=== PATIENT | female | born 1940 | race Caucasian/White ===

== ENCOUNTER → 2016-05-11 | Outpatient (CLI) | payer OTHER ==
[~2016-05-11] MED LIST: ACET-1311 PO; ALEN70TA2 PO; ASPI81TA28 PO; CETI10TA10 PO; CITA20TA9 PO; CLB/200 PO; DONE1TAB25 PO; FERR28TA PO; GLIP-171 PO; LEVO1TAB PO; METF-384 PO; NMN10 PO; OMEGCAP2 PO; PIOG1TAB25 PO; SIMV80TA2 PO
[2016-05-11 10:22] LABS: ESTIMATED AVERAGE GLUCOSE 169 mg/dl; HA1C FLAG Normal (Normal)
[2016-05-11 10:27] LABS: THYROID STIMULATING HORMONE 5.54 uIu/ml (0.300-4.500)
--- NOTE | 2016-05-12 11:32 | CODING QUERY NO DIAGNOSIS ---
TREATMENT RENDERED WITHOUT A DIAGNOSIS To promote full compliance with coding requirements relating to patient care, physician participation is requested in all cases of plate preparer uncertainty. Please assist us with providing a diagnosis/symptom for the test(s) below: A diagnosis/symptom was not documented on your Order. A valid diagnosis/symptom is required to bill all insurances. Please remember that we are unable to code a diagnosis of rule out, probable, possible, questionable, or suspected. Tests that require a diagnosis: DOS: 05/11/16 * HEMOGLOBIN A1C DIAGNOSIS: * TSH DIAGNOSIS: * T4 FREE DIAGNOSIS: Provider Signature: Date: Thank you Brittany Lehman [facility] Information Management Once completed, please kindly fax back to [phone] For questions please call [phone]
== END ==
LOC: C.LABOUTLO 09:06
PROVIDERS: ATTEND Family Medicine
DX: E11.9 Type 2 diabetes mellitus without complications (principal); E03.9 Hypothyroidism, unspecified

== ENCOUNTER → 2016-10-02 | Outpatient (CLI) | payer OTHER ==
[2016-10-02 09:22] LABS: BASO % 0.2 %; BASO ABS # 0.01 K/uL (0-0.2); COMPLETE YES; EOS % 2.6 %; HEMATOCRIT 37.1 % (37-47); IG% 0.2 %; LYMPH % 34.7 %; LYMPH ABS # 1.76 K/uL (1.2-3.4); MEAN CELL VOLUME 95.1 fL (80-100); MEAN CORPUSCULAR HEMOGLOBIN 31.8 pg (25-34); MEAN CORPUSCULAR HGB CONC 33.4 g/dl (32-36); MEAN PLATELET VOLUME 10.8 fL (7.4-10.4); MONO % 11.6 %; NEUT % 50.7 %; PLATELET COUNT 190 K/uL (130-400); WHITE BLOOD COUNT 5.07 K/uL (4.8-10.8)
[2016-10-02 11:09] LABS: URINE APPEARANCE CLOUDY (CLEAR); URINE BILIRUBIN NEG (NEG); URINE COLOR YELLOW; URINE NITRITE NEG (NEG); URINE SPECIFIC GRAVITY 1.023 (1.000-1.030); UROBILINOGEN NEG (NEG)
[2016-10-02 11:14] LABS: MANUAL MICROSCOPIC REQUIRED? NO; REVIEW REQ? NO
== END | disposition home or self-care (01) ==
LOC: C.LABOUTLO 08:44
PROVIDERS: ATTEND Family Medicine
DX: R41.0 Disorientation, unspecified (principal)

== ENCOUNTER → 2016-11-11 | Outpatient (CLI) | payer OTHER ==
[2016-11-11 11:04] LABS: ESTIMATED AVERAGE GLUCOSE 163 mg/dl; HA1C FLAG Normal (Normal)
== END | disposition home or self-care (01) ==
LOC: C.LABOUTLO 09:28
PROVIDERS: ATTEND Family Medicine
DX: Z01.89 Encounter for other specified special examinations (principal)

== ENCOUNTER → 2016-11-13 | Outpatient (CLI) | payer OTHER ==
[2016-11-13 16:03] LABS: URINE APPEARANCE CLOUDY (CLEAR); URINE BILIRUBIN NEG (NEG); URINE COLOR YELLOW; URINE NITRITE POS (NEG); URINE SPECIFIC GRAVITY 1.023 (1.000-1.030); UROBILINOGEN NEG (NEG); ZZUR CULT IF INDIC CLEAN CATCH YES
[2016-11-13 16:05] LABS: MANUAL MICROSCOPIC REQUIRED? NO; REVIEW REQ? NO
--- NOTE | 2016-12-18 09:17 | CODING QUERY NO DIAGNOSIS ---
TREATMENT RENDERED WITHOUT A DIAGNOSIS To promote full compliance with coding requirements relating to patient care, physician participation is requested in all cases of pipeline controller uncertainty. Please assist us with providing a diagnosis/symptom for the test(s) below: A diagnosis/symptom was not documented on your Order. A valid diagnosis/symptom is required to bill all insurances. Please remember that we are unable to code a diagnosis of rule out, probable, possible, questionable, or suspected. Tests that require a diagnosis: * URINE CULTURE CLEAN CATCH DIAGNOSIS: * UA CLEAN CATCH CULT DIAGNOSIS: Provider Signature: Date: Thank you Yovana Noble [employer] Information Management Once completed, please kindly fax back to [phone] For questions please call [phone]
== END | disposition home or self-care (01) ==
LOC: C.LABOUTLO 15:15
PROVIDERS: ATTEND Family Medicine
DX: R30.0 Dysuria (principal)

== ENCOUNTER → 2016-12-25 | Outpatient (CLI) | payer OTHER | END | disposition home or self-care (01) | LOC: C.LABOUTLO 08:33 | PROVIDERS: ATTEND Family Medicine | DX: E11.9 Type 2 diabetes mellitus without complications (principal); R94.6 Abnormal results of thyroid function studies ==

== ENCOUNTER 2017-04-07 14:55 | Emergency (ER) | payer OTHER ==
[~2017-04-07] VITALS: Ht 167.6 cm; Wt 91.1 kg
[~2017-04-07 14:55] MED LIST changes: -ALEN70TA2 PO; -CITA20TA9 PO; -CLB/200 PO; -DONE1TAB25 PO; -SIMV80TA2 PO
[2017-04-07 14:57] VITALS: O2SAT 96; Ht 167.6 cm; Wt 91.1 kg
--- NOTE | 2017-04-07 15:24 | EMERGENCY ROOM VISIT NOTE ---
History First contact with patient: 15:03 Chief Complaint: HYPERGLYCEMIA Stated Complaint: HYPERGLYCEMIA, DOCTOR REFERRED PT KIERRA. History of Present Illness The patient is a 76 year old female who presents to the Emergency Room via ambulance accompanied by power of commercial attorney with complaints of "hyperglycemia, referred by Suzanne Bravo". The patient has been residing at [facility], and has been managing her diabetes with diet control, as well as oral medication. She's been found to have fluctuating glycemic episodes and today had a diaphoretic episode just prior to arrival and they checked her blood sugar was found to be in the 400s. Because that facility does not offer intravenous or subcutaneous insulin they sent her here for evaluation. Bedside glucose currently 269. Power of commercial attorney notes that she is demented. Review of Systems A complete 10-point Review of Systems was discussed with the patient, with pertinent positives and negatives listed in the History of Present Illness. All remaining Review of Systems questions can be considered negative unless otherwise specified. Past Medical/Surgical History Medical Problems: (1) Diabetes (2) Right hip replacement Social History Smoking Status: Never Smoker Alcohol Use: none Drug Use: none Marital Status: single Housing Status: lives with family Current/Historical Medications Scheduled Alendronate Sodium (Fosamax), 70 MG PO WK Celecoxib (CeleBREX), 200 MG PO BID Cephalexin Monohydrate (Keflex), 500 MG PO BID Citalopram Hydrobromide (Celexa), 20 MG PO DAILY Donepezil Hydrochloride (Donepezil Hcl), 5 MG PO DAILY Glipizide Xl (Glucotrol Xl), 5 MG PO BID Levothyroxine Sodium (Levothyroxine Sodium), 112 MCG PO DAILY Memantine (Namenda), 10 MG PO DAILY Metformin Hcl (Glucophage), 500 MG PO BID Montelukast Sodium (Singulair), 10 MG PO DAILY Pioglitazone Hcl (Pioglitazone Hcl), 15 MG PO DAILY Simvastatin (Zocor), 80 MG PO DAILY Physical Exam Vital Signs Date Time Temp Pulse Resp B/P (MAP) Pulse Ox O2 Delivery O2 Flow Rate FiO2 04/07/17 19:05 37.2 62 20 113/68 98 Room Air 04/07/17 18:01 125/101 04/07/17 18:00 68 16 04/07/17 17:30 61 17 04/07/17 17:00 61 14 04/07/17 16:31 156/68 04/07/17 16:30 71 19 04/07/17 16:14 63 20 146/75 94 Room Air 04/07/17 16:13 63 04/07/17 14:57 96 Room Air 04/07/17 14:57 36.7 72 14 139/56 96 Room Air Physical Exam VITAL SIGNS - Vital signs and nursing notes were reviewed. Afebrile and stable vital signs. GENERAL -76-year-old female appearing her stated age who is in no acute distress. Communicates well with provider and answers questions appropriately. She does appear to be demented, but is nontoxic in appearance. SKIN - Without rashes. No particular meningeal rash. HEAD - NC/AT. EYES - PERRL with EOMI bilaterally. Sclera anicteric. No hyphema. EARS - No deformities of external structures noted on gross examination bilaterally. No pain elicited with palpation of the tragus bilaterally. External auditory canals without discharge or otorrhea. Tympanic membranes pearly benitez without retraction or bulging. No fluid or purulent material visualized behind the TM. Handle of malleus, umbo, cone of light, pars tensa/ flaccid all easily visualized. NOSE - Midline and without cyanosis. No epistaxis or purulent drainage noted. MOUTH/OROPHARYNX - Without perioral cyanosis. LUNGS - Chest wall symmetric without accessory muscle use, intercostals retractions, or central cyanosis. Normal vesicular breath sounds CTA B/L. No wheezes, rales, or rhonchi appreciated. CARDIAC - RRR with S1/S2. No murmur, rubs, or gallops appreciated. EXTREMITIES - +5/5 strength noted in UE/LE bilaterally. NEUROLOGIC - Cranial nerves II through XII grossly intact. Sensory intact to light touch throughout. PSYCH - Alert but not oriented, she does cooperate fully with examiner. Pt is very pleasant and interacts well with examiner. Medical Decision & Procedures ER Provider Diagnostic Interpretation: [~ rep ct add3]] CHEST ONE VIEW PORTABLE HISTORY: 76 years-old Female Hyperglycemia COMPARISON: Chest radiograph 12/10/2013 TECHNIQUE: Portable AP view of the chest FINDINGS: Cardiomediastinal and hilar silhouettes are within normal limits. Atherosclerosis of the aorta. Mild right hemidiaphragmatic elevation without pneumothorax, pleural effusion or focal airspace consolidation. Linear subsegmental opacities of the right lung base suggest areas of atelectasis/scarring. Severe degenerative changes with remodeling noted involving the bilateral shoulders, progressed from prior study. Degenerative changes also seen throughout the spine. IMPRESSION: No acute process. The above report was generated using voice recognition software. It may contain grammatical, syntax or spelling errors. Electronically signed by: Giovanni Krause M.D. 04/07/2017 3:26 PM Dictated Date/Time: 04/07/2017 3:25 PM Laboratory Results 04/07/17 15:53 Red Blood Count 3.89, Mean Corpuscular Volume 95.4, Mean Corpuscular Hemoglobin 32.4, Mean Corpuscular Hemoglobin Concent 34.0, Mean Platelet Volume 10.4, Neutrophils (%) (Auto) 63.6, Lymphocytes (%) (Auto) 25.9, Monocytes (%) (Auto) 8.9, Eosinophils (%) (Auto) 1.2, Basophils (%) (Auto) 0.1, Neutrophils # (Auto) 4.42, Lymphocytes # (Auto) 1.80, Monocytes # (Auto) 0.62, Eosinophils # (Auto) 0.08, Basophils # (Auto) 0.01 04/07/17 15:53 Test 04/07/17 15:35 04/07/17 15:53 04/07/17 17:59 Urine Color YELLOW Urine Appearance CLEAR (CLEAR) Urine pH 5.0 (4.5-7.5) Urine Specific [place] 1.027 (1.000-1.030) Urine Protein NEG (NEG) Urine Glucose (UA) 3+ (NEG) Urine Ketones NEG (NEG) Urine Occult Blood TRACE (NEG) Urine Nitrite NEG (NEG) Urine Bilirubin NEG (NEG) Urine Urobilinogen NEG (NEG) Urine Leukocyte Esterase MODERATE (NEG) Urine WBC (Auto) >30 /hpf (0-5) Urine RBC (Auto) 0-4 /hpf (0-4) Urine Hyaline Casts (Auto) 1-5 /lpf (0-5) Urine Epithelial Cells (Auto) 0-5 /lpf (0-5) Urine Bacteria (Auto) 4+ (NEG) White Blood Count 6.95 K/uL (4.8-10.8) Red Blood Count 3.89 M/uL (4.2-5.4) Hemoglobin 12.6 g/dL (12.0-16.0) Hematocrit 37.1 % (37-47) Mean Corpuscular Volume 95.4 fL (80-100) Mean Corpuscular Hemoglobin 32.4 pg (25-34) Mean Corpuscular Hemoglobin Concent 34.0 g/dl (32-36) Platelet Count 191 K/uL (130-400) Mean Platelet Volume 10.4 fL (7.4-10.4) Neutrophils (%) (Auto) 63.6 % Lymphocytes (%) (Auto) 25.9 % Monocytes (%) (Auto) 8.9 % Eosinophils (%) (Auto) 1.2 % Basophils (%) (Auto) 0.1 % Neutrophils # (Auto) 4.42 K/uL (1.4-6.5) Lymphocytes # (Auto) 1.80 K/uL (1.2-3.4) Monocytes # (Auto) 0.62 K/uL (0.11-0.59) Eosinophils # (Auto) 0.08 K/uL (0-0.5) Basophils # (Auto) 0.01 K/uL (0-0.2) RDW Standard Deviation 43.9 fL (36.4-46.3) RDW Coefficient of Variation 12.7 % (11.5-14.5) Immature Granulocyte % (Auto) 0.3 % Immature Granulocyte # (Auto) 0.02 K/uL (0.00-0.02) Prothrombin Time 10.6 SECONDS (9.0-12.0) Prothromb Time International Ratio 1.0 (0.9-1.1) Activated Partial Thromboplast Time 24.1 SECONDS (21.0-31.0) Partial Thromboplastin Ratio 0.9 Anion Gap 8.0 mmol/L (3-11) Est Creatinine Clear Calc Drug Dose 68.2 ml/min Estimated GFR () 82.3 Estimated GFR (Non- 71.0 BUN/Creatinine Ratio 18.9 (10-20) Calcium Level 8.6 mg/dl (8.5-10.1) Magnesium Level 1.5 mg/dl (1.8-2.4) Total Bilirubin 0.3 mg/dl (0.2-1) Aspartate Amino Transf (AST/SGOT) 14 U/L (15-37) Alanine Aminotransferase (ALT/SGPT) 24 U/L (12-78) Alkaline Phosphatase 55 U/L (45-117) Troponin I < 0.015 ng/ml (0-0.045) Total Protein 6.8 gm/dl (6.4-8.2) Albumin 3.4 gm/dl (3.4-5.0) Globulin 3.4 gm/dl (2.5-4.0) Albumin/Globulin Ratio 1.0 (0.9-2) Thyroid Stimulating Hormone (TSH) 7.060 uIu/ml (0.300-4.500) Bedside Glucose 174 mg/dl (70-90) Medications Administered Medications (Trade) Dose Ordered Sig/Francisco Route Start Time Stop Time Status Last Admin Dose Admin Sodium Chloride 500 ml @ 999 mls/hr Q31M STAT IV 04/07/17 15:39 04/07/17 16:09 DC 04/07/17 16:14 999 MLS/HR Ceftriaxone Sodium (Rocephin Inj) 1 gm NOW STAT IV 04/07/17 18:10 04/07/17 18:11 DC 04/07/17 18:35 1 GM Cephalexin Monohydrate (Keflex 500MG Home Pack) 1 homepack NOW STAT PO 04/07/17 18:10 04/07/17 18:11 DC 04/07/17 18:34 1 HOMEPACK Medical Decision Patient was seen and evaluated as above. After obtaining a thorough history and physical examination and was apparent that she was sent here over concern for higher blood sugars and the cause. She was sent from [facility]. Clinically she has dementia, but is otherwise well in appearance. IV access was initiated , the above workup was performed. EKG reveals normal sinus rhythm. CBC reveals no concern leukocytosis. Her blood cell count at 3.9. Coags normal. Metabolic panel reveals POC glucose at 269, and was repeated after fluids without any 174. Magnesium low at 1.5. TSH high at 7.060. Troponin negative. Urinalysis reveals moderate leukocytes, and greater than 30 white blood cells. No epithelial cells. 4+ urine bacteria. I will favor this to be mostly a UTI. She was given 1 g Rocephin here and will be discharged home on Keflex. Previous review was had a for sensitivities and they were found to be nearly pansensitive other than Macrobid. I believe Keflex is appropriate. She' ll be given 500 mg twice a day. She may start this tomorrow. She was given some from here in the event that [facility] is not able to get the prescription tomorrow. Case was discussed with the attending physician. I also utilized to help her case hardener to identify best case and treatment for the patient. It appears that she is stable to go back to [facility] for monitoring of her shoulders during the UTI., And for decompensation. If she changes in any way she is certainly invited to come back. They were educated upon management, educated upon worrisome symptoms in which to return, had questions answered prior to discharge, and were discharged home in good condition. In evaluation treatment this patient following differential diagnoses entertained: PR, sepsis, UTI, pyelonephritis, infected kidney stone, among others. Impression Primary Impression: UTI (urinary tract infection) Additional Impression: Hyperglycemia Departure Information Dispostion Home / Self-Care Condition GOOD Prescriptions Cephalexin Monohydrate (Keflex) 500 Mg Cap 500 MG PO BID for 10 Days, #20 CAP Prov: Carlos Mendoza PA-C 04/07/17 Referrals [facility] (PCP) Patient Instructions My [facility] Additional Instructions You were seen in the emergency Department for high blood sugar and a urinary tract infection. I suspect that you're elevated sugar is probably from your UTI. You point care sugar was found to be 269 here. Addendum dropped to 17. Your magnesium is low at 1.5. TSH is at 7.060. You given 1 g of Rocephin here. This will cover your for 24 hours. You may then begin the Keflex tomorrow afternoon/evening. In the event that you cannot your prescription filled in a short time, I have given you a 2 day supply from the emergency department here. The Keflex will be every 12 hours. I do recommend checking the sugars twice a day during the UTI and thereafter to ensure resolution of the hyperglycemia. Please return with any new/concerning symptoms. Thank you for your time. Please do not hesitate to call back with any questions or concerns. Problem Qualifiers
--- NOTE | 2017-04-07 15:27 | DIAGNOSTIC IMAGING REPORT ---
CHEST ONE VIEW PORTABLE HISTORY: 76 years-old Female Hyperglycemia COMPARISON: Chest radiograph 12/10/2013 TECHNIQUE: Portable AP view of the chest FINDINGS: Cardiomediastinal and hilar silhouettes are within normal limits. Atherosclerosis of the aorta. Mild right hemidiaphragmatic elevation without pneumothorax, pleural effusion or focal airspace consolidation. Linear subsegmental opacities of the right lung base suggest areas of atelectasis/scarring. Severe degenerative changes with remodeling noted involving the bilateral shoulders, progressed from prior study. Degenerative changes also seen throughout the spine. IMPRESSION: No acute process. The above report was generated using voice recognition software. It may contain grammatical, syntax or spelling errors. Electronically signed by: Giovanni Krause M.D. 04/07/2017 3:26 PM Dictated Date/Time: 04/07/2017 3:25 PM
[2017-04-07] MEDS ORDERED: SODIUM CHLORIDE 0.9% 500ML 500 ML IV STA (15:39)
--- NOTE | 2017-04-07 16:02 | EMERGENCY ROOM VISIT NOTE ---
ED Visit Note First contact with patient: 15:03 I have seen and examined this patient with Carlos Mendoza and generally agree with the treatment plan as discussed. Problem List Medical Problems: (1) Diabetes Status: Chronic (2) Right hip replacement Status: Resolved Current/Historical Medications Scheduled Alendronate Sodium (Fosamax), 70 MG PO WK Aspirin (Aspirin Ec), 81 MG PO DAILY Celecoxib (CeleBREX), 200 MG PO BID Cetirizine Hcl (Zyrtec), 10 MG PO BID Citalopram Hydrobromide (Celexa), 20 MG PO DAILY Donepezil Hydrochloride (Donepezil Hcl), 5 MG PO DAILY Ferrous Gluconate (Ferrous Gluconate Iron), 1 TAB PO DAILY Glipizide Xl (Glucotrol Xl), 5 MG PO BID Levothyroxine Sodium (Synthroid), 0.5 TAB PO DAILY Memantine (Namenda), 10 MG PO BIDM Metformin Hcl (Glucophage), 1,000 MG PO BID [place]-3 Fatty Acids (Fish Oil), 1 CAP PO DAILY Pioglitazone Hcl (Pioglitazone Hcl), 15 MG PO DAILY Simvastatin (Zocor), 80 MG PO DAILY Scheduled PRN Acetaminophen (Tylenol), 650 MG PO Q4 PRN for Pain or Fever Allergies Coded Allergies: Naproxen (Verified Allergy, Unknown, ., 10/29/15) Orphenadrine (Verified Allergy, Unknown, UNKNOWN, 10/29/15) POLLEN (Verified Allergy, Unknown, UNKNOWN, 12/10/13) Sodium Metabisulfite (Verified Allergy, Unknown, UNKNOWN, 12/10/13) Warfarin (Verified Allergy, Unknown, UNKNOWN, 10/29/15) Vital Signs Date Time Temp Pulse Resp B/P (MAP) Pulse Ox O2 Delivery O2 Flow Rate FiO2 04/07/17 14:57 96 Room Air 04/07/17 14:57 36.7 72 14 139/56 96 Room Air Laboratory Results Test 04/07/17 15:04 04/07/17 15:35 04/07/17 15:44 04/07/17 15:53 Bedside Glucose 269 mg/dl (70-90) Urine WBC (Auto) >30 /hpf (0-5) Urine RBC (Auto) 0-4 /hpf (0-4) Urine Hyaline Casts (Auto) 1-5 /lpf (0-5) Urine Epithelial Cells (Auto) 0-5 /lpf (0-5) Urine Bacteria (Auto) 4+ (NEG) Departure Information Referrals Caleb Ridley III, M.D. (PCP) Patient Instructions My [facility]
[2017-04-07 16:47] LABS: BASO % 0.1 %; BASO ABS # 0.01 K/uL (0-0.2); EOS % 1.2 %; EOS ABS # 0.08 K/uL (0-0.5); HEMATOCRIT 37.1 % (37-47); HEMOGLOBIN 12.6 g/dL (12.0-16.0); IG# 0.02 K/uL (0.00-0.02); LYMPH % 25.9 %; MEAN CELL VOLUME 95.4 fL (80-100); MEAN CORPUSCULAR HEMOGLOBIN 32.4 pg (25-34); MEAN PLATELET VOLUME 10.4 fL (7.4-10.4); MONO % 8.9 %; MONO ABS # 0.62 K/uL (0.11-0.59); NEUT % 63.6 %; NEUT ABS # 4.42 K/uL (1.4-6.5); PLATELET COUNT 191 K/uL (130-400); RED CELL DISTRIBUTION WIDTH CV 12.7 % (11.5-14.5); RED CELL DISTRIBUTION WIDTH SD 43.9 fL (36.4-46.3); WHITE BLOOD COUNT 6.95 K/uL (4.8-10.8)
[2017-04-07] MEDS ORDERED: LEVO112T4 PO (16:49)
[2017-04-07] MEDS ORDERED: GLC/500 PO (16:52)
[2017-04-07 16:53] LABS: PTT PATIENT 24.1 SECONDS (21.0-31.0)
[2017-04-07 17:05] LABS: ALBUMIN 3.4 gm/dl (3.4-5.0); ALT/SGPT 24 U/L (12-78); AST/SGOT 14 U/L (15-37); BLOOD UREA NITROGEN 15 mg/dl (7-18); CALCIUM 8.6 mg/dl (8.5-10.1); CARBON DIOXIDE 25 mmol/L (21-32); CREATININE 0.81 mg/dl (0.60-1.20); GLUCOSE 217 mg/dl (70-99); POTASSIUM 4.2 mmol/L (3.5-5.1); SODIUM 137 mmol/L (136-145)
[2017-04-07 17:16] LABS: ALKALINE PHOSPHATASE 55 U/L (45-117); TOTAL PROTEIN 6.8 gm/dl (6.4-8.2)
[2017-04-07] MEDS ORDERED: CEPHALEXIN 500MG HOME PACK 1 EA BTL PO STA (18:10)
[2017-04-07] MEDS ORDERED: CEFTRIAXONE SOD INJ 1 GM ADDVIAL IV STA (18:10)
[2017-04-07] MEDS ORDERED: CEPH500C PO (18:13)
[2017-04-07 19:05] VITALS: BP 113/68; PULSE 62; TEMP 37.2; O2SAT 98
--- NOTE | 2017-04-09 13:52 | Pharmacy Progress Note ---
ED Pharmacist Culture FollowUp Date of Service: Apr 09, 2017. Patient was sent home with a prescription for cephalexin 500 mg bid x 10 days, which should cover the Klebsiella pneumoniae growing from the patient's urine culture.
[2017-05-16] MEDS ORDERED: ALEN70TA2 PO (11:17)
[2017-05-16] MEDS ORDERED: MONT1TAB3 PO (16:52)
[2017-09-09] MEDS ORDERED: OXYC-90 PO (16:36)
[2017-09-11] MEDS ORDERED: NVLG SC (20:52)
[2017-09-11] MEDS ORDERED: INSU100I23 SC ×2 (20:52)
[2017-09-11] MEDS ORDERED: MAGN400T6 PO (20:52)
[2017-09-11] MEDS ORDERED: FAMOCHW27 PO (20:52)
[2017-09-11] MEDS ORDERED: LEVO1INJ13 PO (20:52)
[2017-09-11] MEDS ORDERED: OXYC-90 PO (20:52)
[2017-09-11] MEDS ORDERED: ONDA4TAB46 PO (20:52)
[2017-09-17] MEDS ORDERED: NRV5 PO (13:31)
[2017-09-17] MEDS ORDERED: LDDP5 TD (13:31)
[2017-09-17] MEDS ORDERED: ULT50X PO (13:31)
== END 2017-04-07 19:13 | disposition home or self-care (01) ==
LOC: EDBD 14:55 → C.EDC 14:56
DX: N39.0 Urinary tract infection, site not specified (principal); E11.65 Type 2 diabetes mellitus with hyperglycemia; F03.90 Unspecified dementia, unspecified severity, without behavioral disturbance, psychotic disturbance, mood disturbance, and anxiety; Z96.641 Presence of right artificial hip joint; Z79.84 Long term (current) use of oral hypoglycemic drugs

== ENCOUNTER 2017-04-14 18:10 | Emergency (ER) | payer OTHER ==
[~2017-04-14] VITALS: Ht 167.6 cm; Wt 91.0 kg
[~2017-04-14 18:10] MED LIST changes: -ACET-1311 PO; +ALEN70TA2 PO; -ASPI81TA28 PO; +CEPH500C PO; -CETI10TA10 PO; +CITA20TA9 PO; +CLB/200 PO; +DONE1TAB25 PO; -FERR28TA PO; +GLC/500 PO; +LEVO112T4 PO; -LEVO1TAB PO; -METF-384 PO; +MONT1TAB3 PO; -OMEGCAP2 PO; +SIMV80TA2 PO
[2017-04-14 18:17] VITALS: TEMP 36.7; Ht 167.6 cm; Wt 91.0 kg
[2017-04-14] MEDS ORDERED: SODIUM CHLORIDE 0.9% 1000ML 1,000 ML IV STA (18:32)
--- NOTE | 2017-04-14 18:40 | EMERGENCY ROOM VISIT NOTE ---
History Report prepared by Brenda: Leyla Rudd Under the Supervision of: Dr. Amanuel Ortega M.D. First contact with patient: 18:17 Chief Complaint: HYPERGLYCEMIA Stated Complaint: HYPERGLYCEMIA History of Present Illness The patient is a 76 year old female who presents to the Emergency Room with complaints of an episode of hyperglycemia occurring this afternoon. The patient was in the ED six days ago and was treated for a UTI. The patient did not follow up with her PCP after her last ED visit. Per sister, the patient's blood sugar was over 400 this afternoon. The patient lives at [facility] and they had cupcakes today. Per sister, the patient ate two cupcakes and when she tried to eat a third the staff took it away from the patient and she got angry. The patient is not on any insulin. The patient denies any pain. Source of History: patient, family Onset: today Position: other (generalized) Symptom Intensity: over 400 Quality: other (hyperglycemia) Timing: other (episode) Modifying Factors (Relieving): other (none) Review of Systems See HPI for pertinent positives and negatives. A total of ten systems were reviewed and were otherwise negative. Past Medical & Surgical Medical Problems: (1) Diabetes (2) Right hip replacement Family History Patient reports no known family medical history. Social History Smoking Status: Never Smoker Alcohol Use: none Drug Use: none Marital Status: single Housing Status: lives with family Current/Historical Medications Scheduled Alendronate Sodium (Fosamax), 70 MG PO WK Celecoxib (CeleBREX), 200 MG PO BID Cephalexin Monohydrate (Keflex), 500 MG PO BID Citalopram Hydrobromide (Celexa), 20 MG PO DAILY Donepezil Hydrochloride (Donepezil Hcl), 5 MG PO DAILY Glipizide Xl (Glucotrol Xl), 5 MG PO BID Levothyroxine Sodium (Levothyroxine Sodium), 112 MCG PO DAILY Memantine Hcl (Namenda Xr), 28 MG PO DAILY Metformin Hcl (Glucophage), 1,000 MG PO BID Montelukast Sodium (Singulair), 10 MG PO DAILY Ocuvite Preservision (Ocuvite Preservision), 1 TAB PO DAILY Pioglitazone Hcl (Pioglitazone Hcl), 15 MG PO DAILY Simvastatin (Zocor), 80 MG PO DAILY Allergies Coded Allergies: Naproxen (Verified Allergy, Unknown, ., 04/14/17) Orphenadrine (Verified Allergy, Unknown, UNKNOWN, 04/14/17) POLLEN (Verified Allergy, Unknown, UNKNOWN, 04/14/17) Sodium Metabisulfite (Verified Allergy, Unknown, UNKNOWN, 04/14/17) Warfarin (Verified Allergy, Unknown, UNKNOWN, 04/14/17) Physical Exam Vital Signs Date Time Temp Pulse Resp B/P (MAP) Pulse Ox O2 Delivery O2 Flow Rate FiO2 04/14/17 21:15 59 20 134/85 98 04/14/17 19:39 63 16 152/69 97 Room Air 04/14/17 18:17 36.7 66 16 167/72 99 Room Air Physical Exam GENERAL: Awake, alert, pleasantly demented, well-appearing, in no distress HENT: Normocephalic, atraumatic. Oropharynx unremarkable. Dry MM. EYES: Normal conjunctiva. Sclera non-icteric. NECK: Supple. No nuchal rigidity. FROM. No JVD. RESPIRATORY: Clear to auscultation. CARDIAC: Regular rate, normal rhythm. Extremities warm and well perfused. Pulses equal. ABDOMEN: Soft, non-distended. No tenderness to palpation. No rebound or guarding. No masses. RECTAL: Deferred. MUSCULOSKELETAL: Chest examination reveals no tenderness. The back is symmetrical on inspection without obvious abnormality. There is no CVA tenderness to palpation. No joint edema. LOWER EXTREMITIES: Calves are equal size bilaterally and non-tender. No edema. No discoloration. NEURO: Normal sensorium. No sensory or motor deficits noted. SKIN: No rash or jaundice noted. Medical Decision & Procedures Laboratory Results 04/14/17 19:20 Red Blood Count 3.86, Mean Corpuscular Volume 94.8, Mean Corpuscular Hemoglobin 32.4, Mean Corpuscular Hemoglobin Concent 34.2, Mean Platelet Volume 10.2, Neutrophils (%) (Auto) 54.4, Lymphocytes (%) (Auto) 33.5, Monocytes (%) (Auto) 10.1, Eosinophils (%) (Auto) 1.6, Basophils (%) (Auto) 0.2, Neutrophils # (Auto ) 3.14, Lymphocytes # (Auto) 1.93, Monocytes # (Auto) 0.58, Eosinophils # (Auto ) 0.09, Basophils # (Auto) 0.01 04/14/17 19:20 Test 04/14/17 18:38 04/14/17 19:20 Bedside Glucose 250 mg/dl (70-90) White Blood Count 5.76 K/uL (4.8-10.8) Red Blood Count 3.86 M/uL (4.2-5.4) Hemoglobin 12.5 g/dL (12.0-16.0) Hematocrit 36.6 % (37-47) Mean Corpuscular Volume 94.8 fL (80-100) Mean Corpuscular Hemoglobin 32.4 pg (25-34) Mean Corpuscular Hemoglobin Concent 34.2 g/dl (32-36) Platelet Count 173 K/uL (130-400) Mean Platelet Volume 10.2 fL (7.4-10.4) Neutrophils (%) (Auto) 54.4 % Lymphocytes (%) (Auto) 33.5 % Monocytes (%) (Auto) 10.1 % Eosinophils (%) (Auto) 1.6 % Basophils (%) (Auto) 0.2 % Neutrophils # (Auto) 3.14 K/uL (1.4-6.5) Lymphocytes # (Auto) 1.93 K/uL (1.2-3.4) Monocytes # (Auto) 0.58 K/uL (0.11-0.59) Eosinophils # (Auto) 0.09 K/uL (0-0.5) Basophils # (Auto) 0.01 K/uL (0-0.2) RDW Standard Deviation 43.7 fL (36.4-46.3) RDW Coefficient of Variation 12.8 % (11.5-14.5) Immature Granulocyte % (Auto) 0.2 % Immature Granulocyte # (Auto) 0.01 K/uL (0.00-0.02) Anion Gap 7.0 mmol/L (3-11) Est Creatinine Clear Calc Drug Dose 65.7 ml/min Estimated GFR () 78.8 Estimated GFR (Non- 68.0 BUN/Creatinine Ratio 16.4 (10-20) Calcium Level 8.5 mg/dl (8.5-10.1) Laboratory results reviewed by me Medications Administered Medications (Trade) Dose Ordered Sig/Francisco Route Start Time Stop Time Status Last Admin Dose Admin Sodium Chloride 1,000 ml @ 999 mls/hr Q1H1M STAT IV 04/14/17 18:32 04/14/17 19:32 DC 04/14/17 18:56 999 MLS/HR ED Course 1825: The patient was evaluated in room C3. A complete history and physical exam was performed. 2022: I reevaluated the patient. Discussed results and discharge instructions: She verbalized understanding and agreement. The patient is ready for discharge. Medical Decision I reviewed the patient's past medical history, medications, and the nursing notes as described above. Differential diagnoses: hyperglycemia, dietary indiscretion, dehydration, UTI, pneumonia, bronchitis, electrolyte abnormality. The patient is a 76-year-old woman with a past medical history of NIDDM2 resents emergency department from her assisted living after having elevated blood sugars to 400 after they fed her 3 cupcakes history of present illness. It is visit comes after the patient was seen 6 days [employer] for similar elevated blood sugar however determined be secondary to UTI which was treated with dose of ceftriaxone and prescription for Keflex. Culture from visit reveal Klebsiella pneumonia which is susceptible to both. Otherwise the patient is well-appearing, pleasantly demented in no distress, AFVSS. Fingerstick on arrival with glucose in the 200s. Labs's otherwise unremarkable. Given the patient's prior UTI was susceptible to Keflex that was given and clear etiology for the patient's glucose spike due to cupcake consumption, no indication for further workup at this time. Findings and plan for follow-up reviewed with patient and POA at bedside. Agreeable and d/c'd per discharge instructions. Medication Reconcilliation Current Medication List: was personally reviewed by me Blood Pressure Screening Patient's blood pressure: Elevated blood pressure Blood pressure disposition: Elevated BP felt to be situational Impression Primary Impression: Hyperglycemia Scribe Attestation The scribe's documentation has been prepared under my direction and personally reviewed by me in its entirety. I confirm that the note above accurately reflects all work, treatment, procedures, and medical decision making performed by me. Departure Information Dispostion Home / Self-Care Referrals Caleb Ridley III, M.D. (PCP) Forms HOME CARE DOCUMENTATION FORM, IMPORTANT VISIT INFORMATION, WORK / SCHOOL INSTRUCTIONS Patient Instructions ED Hyperglycemia Diabetic, Hyperglycemia, My [facility] Additional Instructions Please follow up with your primary care physician in the next 1-3 days for re- evaluation and to discuss improved glucose control. Your elevated glucose was likely due to eating cupcakes. Otherwise, your exam and lab results did not show signs of an emergent condition at this time. Maintain a diabetic diet. Return to the emergency department for worsening symptoms as described in the accompanying instructions.
[2017-04-14 19:43] LABS: BASO % 0.2 %; BASO ABS # 0.01 K/uL (0-0.2); EOS % 1.6 %; EOS ABS # 0.09 K/uL (0-0.5); HEMATOCRIT 36.6 % (37-47); HEMOGLOBIN 12.5 g/dL (12.0-16.0); IG# 0.01 K/uL (0.00-0.02); LYMPH % 33.5 %; LYMPH ABS # 1.93 K/uL (1.2-3.4); MEAN CELL VOLUME 94.8 fL (80-100); MEAN CORPUSCULAR HEMOGLOBIN 32.4 pg (25-34); MEAN CORPUSCULAR HGB CONC 34.2 g/dl (32-36); MEAN PLATELET VOLUME 10.2 fL (7.4-10.4); MONO % 10.1 %; MONO ABS # 0.58 K/uL (0.11-0.59); NEUT % 54.4 %; NEUT ABS # 3.14 K/uL (1.4-6.5); PLATELET COUNT 173 K/uL (130-400); RED CELL DISTRIBUTION WIDTH CV 12.8 % (11.5-14.5); RED CELL DISTRIBUTION WIDTH SD 43.7 fL (36.4-46.3); WHITE BLOOD COUNT 5.76 K/uL (4.8-10.8)
[2017-04-14 20:01] LABS: CALCIUM 8.5 mg/dl (8.5-10.1); CREATININE 0.84 mg/dl (0.60-1.20); POTASSIUM 4.2 mmol/L (3.5-5.1)
[2017-04-14] MEDS ORDERED: MULT-190 PO (20:10)
[2017-04-14] MEDS ORDERED: MEMA1CAP7 PO (20:12)
[2017-04-14] MEDS ORDERED: METF-384 PO (20:15)
[2017-04-14 21:15] VITALS: BP 134/85; PULSE 59; O2SAT 98
== END 2017-04-14 21:26 | disposition home or self-care (01) ==
LOC: EDBD 18:10 → C.EDC 18:12
DX: R73.9 Hyperglycemia, unspecified (principal); E11.9 Type 2 diabetes mellitus without complications; Z96.641 Presence of right artificial hip joint; Z79.84 Long term (current) use of oral hypoglycemic drugs; Z79.899 Other long term (current) drug therapy; Z88.8 Allergy status to other drugs, medicaments and biological substances

== ENCOUNTER 2017-05-16 18:07 | Emergency (ER) | payer OTHER ==
[~2017-05-16 18:07] MED LIST changes: -CEPH500C PO; -CITA20TA9 PO; -CLB/200 PO; -DONE1TAB25 PO; -GLC/500 PO; +MEMA1CAP7 PO; +MULT-190 PO; -NMN10 PO; -SIMV80TA2 PO
[2017-05-16 18:17] VITALS: TEMP 36.9; Ht 160 cm
[2017-05-16] MEDS ORDERED: SODIUM CHLORIDE 0.9% 1000ML 1,000 ML IV STA (18:27)
--- NOTE | 2017-05-16 18:45 | DIAGNOSTIC IMAGING REPORT ---
CHEST ONE VIEW PORTABLE CLINICAL HISTORY: Pt c/o weakness dyspnea COMPARISON STUDY: 04/07/2017 FINDINGS: The bones soft tissues and hemidiaphragms are normal. The cardiomediastinal silhouette is normal. The lungs are clear. The pulmonary vasculature is normal. Significant degenerative change of the shoulders. IMPRESSION: No acute process. The above report was generated using voice recognition software. It may contain grammatical, syntax or spelling errors. Electronically signed by: Jeffrey Duke M.D. 05/16/2017 6:43 PM Dictated Date/Time: 05/16/2017 6:43 PM
[2017-05-16] MEDS ORDERED: ASPI81TA28 PO (18:49)
[2017-05-16] MEDS ORDERED: INSU100I23 SC (18:49)
[2017-05-16] MEDS ORDERED: CETI10TA73 PO (18:49)
[2017-05-16] MEDS ORDERED: OMEG10007 PO (18:49)
[2017-05-16] MEDS ORDERED: [UNRECOGNIZED DRUG - CODE] PO (18:49)
[2017-05-16] MEDS ORDERED: CYAN100020 PO (18:49)
[2017-05-16] MEDS ORDERED: MEMA10TA PO (18:49)
[2017-05-16] MEDS ORDERED: LEVO88TA3 PO (18:49)
[2017-05-16] MEDS ORDERED: ACET-1311 PO (18:55)
[2017-05-16] MEDS ORDERED: NYST100033 TOP (18:55)
[2017-05-16] MEDS ORDERED: BENZ100C84 PO (18:55)
[2017-05-16 19:00] LABS: BASO % 0.2 %; BASO ABS # 0.01 K/uL (0-0.2); EOS % 0.8 %; EOS ABS # 0.05 K/uL (0-0.5); HEMOGLOBIN 13.5 g/dL (12.0-16.0); IG# 0.02 K/uL (0.00-0.02); LYMPH % 26.6 %; MEAN CELL VOLUME 95.5 fL (80-100); MEAN CORPUSCULAR HEMOGLOBIN 32.2 pg (25-34); MEAN CORPUSCULAR HGB CONC 33.8 g/dl (32-36); MEAN PLATELET VOLUME 10.7 fL (7.4-10.4); MONO % 7.5 %; MONO ABS # 0.48 K/uL (0.11-0.59); NEUT % 64.6 %; NEUT ABS # 4.13 K/uL (1.4-6.5); PLATELET COUNT 199 K/uL (130-400); RED CELL DISTRIBUTION WIDTH CV 12.7 % (11.5-14.5); RED CELL DISTRIBUTION WIDTH SD 43.7 fL (36.4-46.3); WHITE BLOOD COUNT 6.39 K/uL (4.8-10.8)
--- NOTE | 2017-05-16 19:29 | EMERGENCY ROOM VISIT NOTE ---
History Report prepared by Brenda: Werner Lundberg Under the Supervision of: Dr. Darrin Cano M.D. First contact with patient: 18:20 Chief Complaint: HYPERGLYCEMIA Stated Complaint: HYPERGLYCEMIA Nursing Triage Summary: Patient from [facility]. History of Diabetes on Metformin and basaglar once a day. Today with BSG above 500. BSG fro EMS 539. BSG on arrival to ER 515 . History of Present Illness The patient is a 76 year old female who presents to the Emergency Room with complaints of constant weakness and disorientation which began earlier today. The patient's sister notes that the patient was in the hospital one month ago when she had her blood pressure medications changed. The patient's sister states that the patient was taken off of two of her medications, but was placed on long acting insulin and is still on Metformin. The patient's sister reports that the patient is on a carbohydrate-control diet and has a history of UTI's. The sister denies that the patient has been experiencing any fevers or loss of appetite. The patient is currently unaware of where she is. Source of History: sibling Onset: Earlier today. Position: other (Global ) Quality: other (weakness) Timing: constant Associated Symptoms: No fevers Note: Associated Symptoms: Unaware of place. Denies: Loss of appetite. Review of Systems See HPI for pertinent positives & negatives. A total of 10 systems reviewed and were otherwise negative. Past Medical & Surgical Medical Problems: (1) Diabetes (2) Right hip replacement Family History Patient reports no known family medical history. Social History Smoking Status: Never Smoker Alcohol Use: none Drug Use: none Marital Status: single Housing Status: lives with family Current/Historical Medications Scheduled Alendronate Sodium (Fosamax), 70 MG PO WK Aspirin (Aspirin Ec), 81 MG PO DAILY Celecoxib (CeleBREX), 200 MG PO BID Cetirizine Hcl (All Day Allergy), 10 MG PO BID Citalopram Hydrobromide (Celexa), 20 MG PO DAILY Cyanocobalamin (Vitamin B12), 1,000 MCG PO QAM Donepezil Hydrochloride (Donepezil Hcl), 5 MG PO DAILY Ferrous Gluconate (Ferrous Gluconate), 240 MG PO DAILY Fish Oil ([place]-3), 1 CAP PO DAILY Insulin Glargine (Basaglar Kwikpen), 10 UNITS SC QAM Insulin Human Isophan/Regular (Novolin 70/30), 10 UNITS SC AC Levothyroxine Sodium (Levothyroxine Sodium), 88 MCG PO DAILY Memantine Hcl (Namenda), 10 MG PO BIDM Metformin Hcl (Glucophage), 1,000 MG PO BID Montelukast Sodium (Singulair), 10 MG PO QAM Simvastatin (Zocor), 80 MG PO QAM Scheduled PRN Acetaminophen (Tylenol), 650 MG PO Q4H PRN for Pain or Fever Benzonatate (Tessalon Perles), 100 MG PO TID PRN for Cough Nystatin (Topical) (Nystatin), 1 APPLN TOP BID PRN for Groin Irritation Allergies Coded Allergies: Naproxen (Verified Allergy, Unknown, ., 04/14/17) Orphenadrine (Verified Allergy, Unknown, UNKNOWN, 04/14/17) POLLEN (Verified Allergy, Unknown, UNKNOWN, 04/14/17) Sodium Metabisulfite (Verified Allergy, Unknown, UNKNOWN, 04/14/17) Warfarin (Verified Allergy, Unknown, UNKNOWN, 04/14/17) Physical Exam Vital Signs Date Time Temp Pulse Resp B/P (MAP) Pulse Ox O2 Delivery O2 Flow Rate FiO2 05/16/17 22:03 65 18 145/94 95 05/16/17 21:04 61 18 128/66 95 Room Air 05/16/17 19:39 63 18 171/69 95 Room Air 05/16/17 18:56 Room Air 05/16/17 18:32 65 05/16/17 18:17 36.9 68 18 142/71 95 Room Air Physical Exam GENERAL: Patient is a healthy-appearing well-nourished female HEAD: Normocephalic atraumatic EYES: Ocular movements intact pupils equal and react to light OROPHARYNX mucous membranes are moist no exudates present no erythema or edema present NECK: Supple no nuchal rigidity CHEST: Good equal expansion LUNGS: Clear and equal to auscultation CARDIAC: Normal S1 and S2 ABDOMEN: Soft nontender no guarding BACK: No CVA tenderness EXTREMITIES: No pain upon palpation normal muscle strength in all groups no clubbing cyanosis or edema NEURO: The patient is confused and is unable to answer questions. Medical Decision & Procedures ER Provider Diagnostic Interpretation: Radiology results as stated below per my review and radiologist interpretation: CHEST ONE VIEW PORTABLE CLINICAL HISTORY: Pt c/o weakness dyspnea COMPARISON STUDY: 04/07/2017 FINDINGS: The bones soft tissues and hemidiaphragms are normal. The cardiomediastinal silhouette is normal. The lungs are clear. The pulmonary vasculature is normal. Significant degenerative change of the shoulders. IMPRESSION: No acute process. The above report was generated using voice recognition software. It may contain grammatical, syntax or spelling errors. Electronically signed by: Jeffrey Duke M.D. 05/16/2017 6:43 PM Dictated Date/Time: 05/16/2017 6:43 PM Laboratory Results 05/16/17 18:50 Red Blood Count 4.19, Mean Corpuscular Volume 95.5, Mean Corpuscular Hemoglobin 32.2, Mean Corpuscular Hemoglobin Concent 33.8, Mean Platelet Volume 10.7, Neutrophils (%) (Auto) 64.6, Lymphocytes (%) (Auto) 26.6, Monocytes (%) (Auto) 7.5, Eosinophils (%) (Auto) 0.8, Basophils (%) (Auto) 0.2, Neutrophils # (Auto) 4.13, Lymphocytes # (Auto) 1.70, Monocytes # (Auto) 0.48, Eosinophils # (Auto) 0.05, Basophils # (Auto) 0.01 05/16/17 18:50 Test 05/16/17 18:50 05/16/17 19:30 05/16/17 20:27 White Blood Count 6.39 K/uL (4.8-10.8) Red Blood Count 4.19 M/uL (4.2-5.4) Hemoglobin 13.5 g/dL (12.0-16.0) Hematocrit 40.0 % (37-47) Mean Corpuscular Volume 95.5 fL (80-100) Mean Corpuscular Hemoglobin 32.2 pg (25-34) Mean Corpuscular Hemoglobin Concent 33.8 g/dl (32-36) Platelet Count 199 K/uL (130-400) Mean Platelet Volume 10.7 fL (7.4-10.4) Neutrophils (%) (Auto) 64.6 % Lymphocytes (%) (Auto) 26.6 % Monocytes (%) (Auto) 7.5 % Eosinophils (%) (Auto) 0.8 % Basophils (%) (Auto) 0.2 % Neutrophils # (Auto) 4.13 K/uL (1.4-6.5) Lymphocytes # (Auto) 1.70 K/uL (1.2-3.4) Monocytes # (Auto) 0.48 K/uL (0.11-0.59) Eosinophils # (Auto) 0.05 K/uL (0-0.5) Basophils # (Auto) 0.01 K/uL (0-0.2) RDW Standard Deviation 43.7 fL (36.4-46.3) RDW Coefficient of Variation 12.7 % (11.5-14.5) Immature Granulocyte % (Auto) 0.3 % Immature Granulocyte # (Auto) 0.02 K/uL (0.00-0.02) Anion Gap 13.0 mmol/L (3-11) Estimated GFR () 48.3 Estimated GFR (Non- 41.6 BUN/Creatinine Ratio 13.7 (10-20) Calcium Level 9.0 mg/dl (8.5-10.1) Total Bilirubin 0.3 mg/dl (0.2-1) Direct Bilirubin < 0.1 mg/dl (0-0.2) Aspartate Amino Transf (AST/SGOT) 10 U/L (15-37) Alanine Aminotransferase (ALT/SGPT) 20 U/L (12-78) Alkaline Phosphatase 72 U/L (45-117) Total Creatine Kinase 53 U/L (26-192) Creatine Kinase MB 0.8 ng/ml (0.5-3.6) Creatine Kinase MB Ratio 1.5 (0-3.0) Troponin I < 0.015 ng/ml (0-0.045) Total Protein 6.9 gm/dl (6.4-8.2) Albumin 3.7 gm/dl (3.4-5.0) Beta-Hydroxybutyric Acid 1.88 mg/dL (0.2-2.81) Thyroid Stimulating Hormone (TSH) 9.230 uIu/ml (0.300-4.500) Influenza Type A Antigen Neg for Influ A (NEG) Influenza Type B Antigen Neg for Influ B (NEG) Urine Color YELLOW Urine Appearance CLEAR (CLEAR) Urine pH 5.0 (4.5-7.5) Urine Specific [place] 1.038 (1.000-1.030) Urine Protein NEG (NEG) Urine Glucose (UA) 3+ (NEG) Urine Ketones NEG (NEG) Urine Occult Blood NEG (NEG) Urine Nitrite NEG (NEG) Urine Bilirubin NEG (NEG) Urine Urobilinogen NEG (NEG) Urine Leukocyte Esterase NEG (NEG) Bedside Glucose 396 mg/dl (70-90) Labs reviewed by ED physician. Medications Administered Medications (Trade) Dose Ordered Sig/Francisco Route Start Time Stop Time Status Last Admin Dose Admin Sodium Chloride 1,000 ml @ 999 mls/hr Q1H1M STAT IV 05/16/17 18:27 05/16/17 19:27 DC 05/16/17 18:45 999 MLS/HR Insulin Human Regular (novoLIN-R U-100 PER UNIT) 10 units NOW STAT SC 05/16/17 19:46 05/16/17 19:47 DC 05/16/17 19:54 10 UNITS ECG Indication: weakness Rate (beats per minute): 65 Rhythm: normal sinus Findings: prolonged QT, other (No ST Elevations or Depressions) Change: Patient's electrocardiogram per my interpretation. ED Course 1820: Past medical records reviewed. The patient was evaluated in room B12. A complete history and physical examination was performed. 1826: Ordered Sodium Chloride 1000 ml @ 999 mls/hr. 1945: Ordered Insulin Human Regulator 10 units SC. 2027: Upon reexamination the patient is resting in bed. I discussed results and treatment plan with the patient. She verbalizes agreement and understanding. The patient is ready for discharge. Medical Decision Differential diagnosis: Etiologies such as metabolic, infection, hypo/hyperglycemia, electrolyte abnormalities, cardiac sources, intracerebral event, toxicologic, neurologic, as well as others were entertained. This is a 76-year-old female who presents emergency department complaining of hyperglycemia. The patient does not appear to be in DKA and is nontoxic in appearance. In addition she is afebrile and does not appear to have any source of infection. She was given normal saline bolus in the emergency department along with 10 of insulin. Repeat examination revealed her blood sugar to be falling. As the patient is not DKA I feel she is well enough to be discharged home. She hasn't no evidence of urinary tract infection and has a normal chest x-ray. I stressed the need for follow-up with the patient's primary care physician. I also discussed the case with the patient's senior living and recommended that the patient be placed on an insulin sliding scale with close follow-up with primary care physician. Patient family and senior living were in agreement with the treatment plan. Medication Reconcilliation Current Medication List: was personally reviewed by me Blood Pressure Screening Patient's blood pressure: Elevated blood pressure Blood pressure disposition: Referred to PCP Impression Primary Impression: Hyperglycemia Additional Impression: Dehydration Scribe Attestation The scribe's documentation has been prepared under my direction and personally reviewed by me in its entirety. I confirm that the note above accurately reflects all work, treatment, procedures, and medical decision making performed by me. Departure Information Dispostion Home / Self-Care Prescriptions Insulin Human Isophan/Regular (Novolin 70/30) Inj 10 UNITS SC AC for 3 Days, #1 BTL Prov: Darrin Cano MD 05/16/17 Referrals Caleb Ridley III, M.D. (PCP) Forms HOME CARE DOCUMENTATION FORM, IMPORTANT VISIT INFORMATION, WORK / SCHOOL INSTRUCTIONS Patient Instructions My [facility] Additional Instructions Increase fluid next 48 hours Need follow up with Dr Ridley Increase Insulin per sliding scale You have been examined and treated today on an emergency basis only. This is not a substitute for, or an effort to provide, complete comprehensive medical care. It is impossible to recognize and treat all injuries or illnesses in a single emergency department visit. It is therefore important that you follow up closely with Dr Ridley. Call as soon as possible for an appointment. Thank you for your time and consideration. I look forward to speaking with you again soon. Please don't hesitate to call us if you have any questions. Problem Qualifiers
[2017-05-16 19:34] LABS: ALBUMIN 3.7 gm/dl (3.4-5.0); ALKALINE PHOSPHATASE 72 U/L (45-117); ALT/SGPT 20 U/L (12-78); AST/SGOT 10 U/L (15-37); BLOOD UREA NITROGEN 17 mg/dl (7-18); CARBON DIOXIDE 24 mmol/L (21-32); CKMB 0.8 ng/ml (0.5-3.6); CREATININE 1.26 mg/dl (0.60-1.20); POTASSIUM 4.2 mmol/L (3.5-5.1); SODIUM 137 mmol/L (136-145); TOTAL PROTEIN 6.9 gm/dl (6.4-8.2)
[2017-05-16 19:35] LABS: GLUCOSE 492 mg/dl (70-99)
[2017-05-16 19:37] LABS: INFLUENZA B ANTIGEN Neg for Influ B (NEG)
[2017-05-16] MEDS ORDERED: NovoLIN-R INSULIN PER UNIT CHARGE SC STA (19:46)
[2017-05-16] MEDS ORDERED: METF-384 PO (20:15)
[2017-05-16] MEDS ORDERED: INSU70IN2 SC (20:22)
[2017-05-16] MEDS ORDERED: CITA20TA9 PO (20:56)
[2017-05-16] MEDS ORDERED: CLB/200 PO (20:56)
[2017-05-16] MEDS ORDERED: DONE1TAB25 PO (20:56)
[2017-05-16] MEDS ORDERED: SIMV80TA2 PO (20:56)
[2017-05-16 22:03] VITALS: BP 145/94; PULSE 65; O2SAT 95
[2017-05-17] MEDS ORDERED: INSDGI SC (21:06)
[2017-05-17] MEDS ORDERED: NVLG SC (21:06)
== END 2017-05-16 22:03 | disposition home or self-care (01) ==
LOC: EDBD 18:07 → C.EDB 18:08
DX: E11.65 Type 2 diabetes mellitus with hyperglycemia (principal); E86.0 Dehydration; Z79.4 Long term (current) use of insulin; Z79.84 Long term (current) use of oral hypoglycemic drugs; Z96.641 Presence of right artificial hip joint; Z79.82 Long term (current) use of aspirin; Z79.899 Other long term (current) drug therapy

== ENCOUNTER 2017-05-17 20:16 | Emergency (ER) | payer OTHER ==
[~2017-05-17 20:16] MED LIST changes: +ACET-1311 PO; +ASPI81TA28 PO; +BENZ100C84 PO; +CETI10TA73 PO; +CITA20TA9 PO; +CLB/200 PO; +CYAN100020 PO; +DONE1TAB25 PO; +INSU100I23 SC; +INSU70IN2 SC; +LEVO88TA3 PO; +MEMA10TA PO; +METF-384 PO; +NYST100033 TOP; +OMEG10007 PO; +SIMV80TA2 PO; +[UNRECOGNIZED DRUG - CODE] PO
[2017-05-17 20:26] VITALS: Ht 157.5 cm
[2017-05-17] MEDS ORDERED: NovoLIN-R INSULIN PER UNIT CHARGE SC STA (20:57)
[2017-05-17] MEDS ORDERED: SODIUM CHLORIDE 0.9% 1000ML 1,000 ML IV STA (20:57)
--- NOTE | 2017-05-17 20:59 | EMERGENCY ROOM VISIT NOTE ---
History Report prepared by Brenda: Johnathan Garcia Under the Supervision of: Dr. Darrin Cano M.D. First contact with patient: 20:53 Chief Complaint: HYPERGLYCEMIA Stated Complaint: HYPERGLYCEMIA Nursing Triage Summary: Patient presents to the ED via BLS from [facility] for Hyperglycemia. Patient was seen here in the ED last night for the same reason. At [facility] patient BSG was 474, they did give her insulin at dinner time. History of Dementia. Upon arrival to the ED patient BSG 390. History of Present Illness The patient is a 76 year old female with a history of dementia who presents to the Emergency Room via EMS from [facility] with complaints of persistent hyperglycemia this evening. Per the patient's family, the patient's blood sugar was over 400 (around 474) this evening, and the patient was noted to be shaking. The patient's blood sugar was noted to now be falling to the 390's. She was given insulin a few hours ago around dinner time. The patient was seen here last night for hyperglycemia as well. Source of History: family Onset: This evening Position: other (global - hyperglycemia) Symptom Intensity: BSG around 474 Quality: other (BSG now down to 390's) Timing: other (persistent) Note: Associated symptoms: Patient was shaking. Review of Systems See HPI for pertinent positives & negatives. A total of 10 systems reviewed and were otherwise negative. Past Medical & Surgical Medical Problems: (1) Diabetes (2) Right hip replacement Family History Patient reports no known family medical history. Social History Smoking Status: Never Smoker Alcohol Use: none Drug Use: none Marital Status: single Housing Status: lives with family Current/Historical Medications Scheduled Alendronate Sodium (Fosamax), 70 MG PO WK Aspirin (Aspirin Ec), 81 MG PO DAILY Celecoxib (CeleBREX), 200 MG PO BID Cetirizine Hcl (All Day Allergy), 10 MG PO BID Citalopram Hydrobromide (Celexa), 20 MG PO DAILY Cyanocobalamin (Vitamin B12), 1,000 MCG PO QAM Donepezil Hydrochloride (Donepezil Hcl), 5 MG PO DAILY Ferrous Gluconate (Ferrous Gluconate), 240 MG PO DAILY Fish Oil ([place]-3), 1 CAP PO DAILY Insulin Aspart (Novolog), 0 SC DIRECTED Insulin Glargine (Basaglar Kwikpen), 10 UNITS SC QAM Insulin Glargine (Lantus), 5 UNITS SC QAM Insulin Human Isophan/Regular (Novolin 70/30), 10 UNITS SC AC Levothyroxine Sodium (Levothyroxine Sodium), 88 MCG PO DAILY Memantine Hcl (Namenda), 10 MG PO BIDM Metformin Hcl (Glucophage), 1,000 MG PO BID Montelukast Sodium (Singulair), 10 MG PO QAM Simvastatin (Zocor), 80 MG PO QAM Scheduled PRN Acetaminophen (Tylenol), 650 MG PO Q4H PRN for Pain or Fever Benzonatate (Tessalon Perles), 100 MG PO TID PRN for Cough Nystatin (Topical) (Nystatin), 1 APPLN TOP BID PRN for Groin Irritation Allergies Coded Allergies: Naproxen (Verified Allergy, Unknown, ., 05/17/17) Orphenadrine (Verified Allergy, Unknown, UNKNOWN, 05/17/17) POLLEN (Verified Allergy, Unknown, UNKNOWN, 05/17/17) Sodium Metabisulfite (Verified Allergy, Unknown, UNKNOWN, 05/17/17) Warfarin (Verified Allergy, Unknown, UNKNOWN, 05/17/17) Physical Exam Vital Signs Date Time Temp Pulse Resp B/P (MAP) Pulse Ox O2 Delivery O2 Flow Rate FiO2 05/18/17 00:27 36.7 87 18 126/85 98 05/18/17 00:04 87 18 126/85 98 Room Air 05/17/17 21:56 62 05/17/17 21:45 96 Room Air 05/17/17 21:41 61 20 132/67 96 Room Air 05/17/17 20:26 36.7 67 142/72 96 Room Air Physical Exam GENERAL: Patient is a healthy-appearing well-nourished 76 year old female. HEAD: Normocephalic atraumatic EYES: Ocular movements intact pupils equal and react to light OROPHARYNX mucous membranes are moist no exudates present no erythema or edema present NECK: Supple no nuchal rigidity CHEST: Good equal expansion LUNGS: Clear and equal to auscultation CARDIAC: Normal S1 and S2 ABDOMEN: Soft nontender no guarding BACK: No CVA tenderness EXTREMITIES: No pain upon palpation normal muscle strength in all groups no clubbing cyanosis or edema NEURO: Patient is following commands and answering questions appropriately. Alert and oriented x3 Cranial Nerves 2-12 grossly intact Medical Decision & Procedures Laboratory Results 05/17/17 21:35 Red Blood Count 4.07, Mean Corpuscular Volume 92.6, Mean Corpuscular Hemoglobin 32.2, Mean Corpuscular Hemoglobin Concent 34.7, Mean Platelet Volume 10.5, Neutrophils (%) (Auto) 59.3, Lymphocytes (%) (Auto) 30.1, Monocytes (%) (Auto) 8.9, Eosinophils (%) (Auto) 1.1, Basophils (%) (Auto) 0.3, Neutrophils # (Auto) 4.15, Lymphocytes # (Auto) 2.11, Monocytes # (Auto) 0.62, Eosinophils # (Auto) 0.08, Basophils # (Auto) 0.02 05/17/17 21:35 Test 05/17/17 20:23 05/17/17 21:35 Bedside Glucose 390 mg/dl (70-90) White Blood Count 7.00 K/uL (4.8-10.8) Red Blood Count 4.07 M/uL (4.2-5.4) Hemoglobin 13.1 g/dL (12.0-16.0) Hematocrit 37.7 % (37-47) Mean Corpuscular Volume 92.6 fL (80-100) Mean Corpuscular Hemoglobin 32.2 pg (25-34) Mean Corpuscular Hemoglobin Concent 34.7 g/dl (32-36) Platelet Count 205 K/uL (130-400) Mean Platelet Volume 10.5 fL (7.4-10.4) Neutrophils (%) (Auto) 59.3 % Lymphocytes (%) (Auto) 30.1 % Monocytes (%) (Auto) 8.9 % Eosinophils (%) (Auto) 1.1 % Basophils (%) (Auto) 0.3 % Neutrophils # (Auto) 4.15 K/uL (1.4-6.5) Lymphocytes # (Auto) 2.11 K/uL (1.2-3.4) Monocytes # (Auto) 0.62 K/uL (0.11-0.59) Eosinophils # (Auto) 0.08 K/uL (0-0.5) Basophils # (Auto) 0.02 K/uL (0-0.2) RDW Standard Deviation 42.7 fL (36.4-46.3) RDW Coefficient of Variation 12.5 % (11.5-14.5) Immature Granulocyte % (Auto) 0.3 % Immature Granulocyte # (Auto) 0.02 K/uL (0.00-0.02) Anion Gap 10.0 mmol/L (3-11) Estimated GFR () 67.1 Estimated GFR (Non- 57.9 BUN/Creatinine Ratio 17.2 (10-20) Estimated Average Glucose 226 mg/dl Hemoglobin A1c 9.5 % (4.5-5.6) Calcium Level 8.8 mg/dl (8.5-10.1) Total Bilirubin 0.3 mg/dl (0.2-1) Direct Bilirubin 0.1 mg/dl (0-0.2) Aspartate Amino Transf (AST/SGOT) 9 U/L (15-37) Alanine Aminotransferase (ALT/SGPT) 20 U/L (12-78) Alkaline Phosphatase 59 U/L (45-117) Total Protein 6.6 gm/dl (6.4-8.2) Albumin 3.5 gm/dl (3.4-5.0) Beta-Hydroxybutyric Acid 1.80 mg/dL (0.2-2.81) Thyroid Stimulating Hormone (TSH) 10.300 uIu/ml (0.300-4.500) Labs reviewed by ED physician. Medications Administered Medications (Trade) Dose Ordered Sig/Francisco Route Start Time Stop Time Status Last Admin Dose Admin Sodium Chloride 1,000 ml @ 999 mls/hr Q1H1M STAT IV 05/17/17 20:57 05/17/17 21:57 DC 05/17/17 21:44 999 MLS/HR Insulin Human Regular (novoLIN-R U-100 PER UNIT) 10 units NOW STAT SC 05/17/17 20:57 05/17/17 20:59 DC 05/17/17 21:44 10 UNITS ED Course 2054: Past medical records reviewed. The patient was evaluated in room A10. A complete history and physical examination was performed. I discussed results and treatment plan with the patient. She verbalizes agreement and understanding. The patient is ready for discharge. 2056: Ordered Novolin-R U-100 PER UNIT 10 units SC, NSS 1000 ml @ 999 mls/hr IV. Medical Decision Differential diagnosis: Etiologies such as metabolic, infection, hypo/hyperglycemia, electrolyte abnormalities, cardiac sources, intracerebral event, toxicologic, neurologic, as well as others were entertained. This is 76-year-old female who presents emergency department complaining of hyperglycemia. I will note that the patient's hyperglycemia is lower than it was previously. The patient will be placed on a sliding [facility]. She was also placed on Lantus. I stressed the need for follow- up with the patient's primary care physician. Patient was in agreement with the treatment plan. Medication Reconcilliation Current Medication List: was personally reviewed by me Blood Pressure Screening Patient's blood pressure: Elevated blood pressure Blood pressure disposition: Elevated BP felt to be situational Impression Primary Impression: Hyperglycemia Scribe Attestation The scribe's documentation has been prepared under my direction and personally reviewed by me in its entirety. I confirm that the note above accurately reflects all work, treatment, procedures, and medical decision making performed by me. Departure Information Dispostion Home / Self-Care Prescriptions Insulin Aspart (NOVOLOG) 100 Units/Ml Inj 0 SC DIRECTED, #1 VIAL Give 1 unit for every 20 Units greater than 160 post meals Prov: Darrin Cano MD 05/17/17 Insulin Glargine (Lantus) 100 Unit/Ml Inj 5 UNITS SC QAM, #1 VIAL Prov: Darrin Cano MD 05/17/17 Referrals Caleb Ridley III, M.D. (PCP) Forms HOME CARE DOCUMENTATION FORM, IMPORTANT VISIT INFORMATION, WORK / SCHOOL INSTRUCTIONS Patient Instructions My [facility] Additional Instructions Last HA1C= 7.3 11/2016 For every 20 units above 160 administer 1 Unit of Novolog Lantus 5 Units QAM Adjust as necessary Need Follow up with Dr Ridley on Wednesday
[2017-05-17] MEDS ORDERED: NVLG SC (21:06)
[2017-05-17] MEDS ORDERED: INSDGI SC (21:06)
[2017-05-17 21:45] VITALS: O2SAT 96
[2017-05-17 22:01] LABS: BASO % 0.3 %; BASO ABS # 0.02 K/uL (0-0.2); EOS % 1.1 %; EOS ABS # 0.08 K/uL (0-0.5); HEMATOCRIT 37.7 % (37-47); HEMOGLOBIN 13.1 g/dL (12.0-16.0); IG# 0.02 K/uL (0.00-0.02); LYMPH % 30.1 %; LYMPH ABS # 2.11 K/uL (1.2-3.4); MEAN CELL VOLUME 92.6 fL (80-100); MEAN CORPUSCULAR HEMOGLOBIN 32.2 pg (25-34); MEAN CORPUSCULAR HGB CONC 34.7 g/dl (32-36); MEAN PLATELET VOLUME 10.5 fL (7.4-10.4); MONO % 8.9 %; MONO ABS # 0.62 K/uL (0.11-0.59); NEUT % 59.3 %; NEUT ABS # 4.15 K/uL (1.4-6.5); PLATELET COUNT 205 K/uL (130-400); RED CELL DISTRIBUTION WIDTH CV 12.5 % (11.5-14.5); RED CELL DISTRIBUTION WIDTH SD 42.7 fL (36.4-46.3)
[2017-05-17 22:26] LABS: ALBUMIN 3.5 gm/dl (3.4-5.0); ALT/SGPT 20 U/L (12-78); BLOOD UREA NITROGEN 17 mg/dl (7-18); CALCIUM 8.8 mg/dl (8.5-10.1); CARBON DIOXIDE 23 mmol/L (21-32); CREATININE 0.96 mg/dl (0.60-1.20); GLUCOSE 318 mg/dl (70-99); SODIUM 136 mmol/L (136-145)
[2017-05-17 22:37] LABS: ALKALINE PHOSPHATASE 59 U/L (45-117); AST/SGOT 9 U/L (15-37); TOTAL PROTEIN 6.6 gm/dl (6.4-8.2)
[2017-05-18 00:27] VITALS: BP 126/85; PULSE 87; TEMP 36.7; O2SAT 98
[2017-05-18 06:37] LABS: HEMOGLOBIN A1C 9.5 % (4.5-5.6)
== END 2017-05-18 00:25 | disposition home or self-care (01) ==
LOC: EDBD 20:16 → C.EDA 20:18
DX: E11.65 Type 2 diabetes mellitus with hyperglycemia (principal); F03.90 Unspecified dementia, unspecified severity, without behavioral disturbance, psychotic disturbance, mood disturbance, and anxiety; Z79.4 Long term (current) use of insulin; Z79.82 Long term (current) use of aspirin; Z79.899 Other long term (current) drug therapy; Z88.6 Allergy status to analgesic agent; Z88.8 Allergy status to other drugs, medicaments and biological substances; Z91.048 Other nonmedicinal substance allergy status

== ENCOUNTER 2017-06-01 08:44 | Emergency (ER) | payer OTHER ==
[~2017-06-01] VITALS: Ht 162.6 cm; Wt 91.4 kg
[2017-06-01 08:44] VITALS: TEMP 36.8; Ht 162.6 cm; Wt 91.4 kg
[~2017-06-01 08:44] MED LIST changes: -GLIP-171 PO; +INSDGI SC; -INSU70IN2 SC; -LEVO112T4 PO; -MEMA1CAP7 PO; -MULT-190 PO; +NVLG SC; -PIOG1TAB25 PO
[2017-06-01] MEDS ORDERED: ACETAMINOPHEN 500 MG TAB PO STA (08:52)
[2017-06-01 09:04] VITALS: O2SAT 96
--- NOTE | 2017-06-01 09:05 | EMERGENCY ROOM VISIT NOTE ---
History First contact with patient: 08:46 Chief Complaint: FALL Stated Complaint: FALL/HEAD PAIN History of Present Illness The patient is a 76 year old female who presents to the Emergency Room via private vehicle accompanied by power of admitted attorneys/her sister with complaints of "fall/head pain". The patient has a history of Alzheimer's, and unfortunately is not able to provide much history. Much of the history comes from her power of admitted attorneys who is also her sister, as well as when I spoke with [facility] where the patient resides. It was identified that the patient was coming out of the bathroom this morning, lost her balance and struck her head against the wall and fell to the floor. She notes that their policy is to send patients to the emergency department when this occurs. Review of Systems A complete 10-point Review of Systems was discussed with the patient, with pertinent positives and negatives listed in the History of Present Illness. All remaining Review of Systems questions can be considered negative unless otherwise specified. (performed at bedside with POA and patient) Past Medical/Surgical History Medical Problems: (1) Diabetes (2) Right hip replacement Family History Patient reports no known family medical history. Social History Smoking Status: Unknown if Ever Smoked Alcohol Use: none Drug Use: none Marital Status: single Housing Status: lives with family Current/Historical Medications Scheduled Alendronate Sodium (Fosamax), 70 MG PO WK Aspirin (Aspirin Ec), 81 MG PO DAILY Celecoxib (CeleBREX), 200 MG PO BID Cetirizine Hcl (All Day Allergy), 10 MG PO BID Citalopram Hydrobromide (Celexa), 20 MG PO DAILY Cyanocobalamin (Vitamin B12), 1,000 MCG PO QAM Donepezil Hydrochloride (Donepezil Hcl), 5 MG PO DAILY Ferrous Gluconate (Ferrous Gluconate), 240 MG PO DAILY Fish Oil ([place]-3), 1 CAP PO DAILY Insulin Aspart (Novolog), 0 SC DIRECTED Insulin Glargine (Lantus Solostar), 15 UNITS SC QAM Levothyroxine Sodium (Levothyroxine Sodium), 88 MCG PO DAILY Memantine Hcl (Namenda), 10 MG PO BIDM Metformin Hcl (Glucophage), 1,000 MG PO BID Montelukast Sodium (Singulair), 10 MG PO QAM Simvastatin (Zocor), 80 MG PO QAM Scheduled PRN Acetaminophen (Tylenol), 650 MG PO Q4H PRN for Pain or Fever Benzonatate (Tessalon Perles), 100 MG PO TID PRN for Cough Nystatin (Topical) (Nystatin), 1 APPLN TOP BID PRN for Groin Irritation Physical Exam Vital Signs Date Time Temp Pulse Resp B/P (MAP) Pulse Ox O2 Delivery O2 Flow Rate FiO2 06/01/17 12:32 71 20 139/68 96 06/01/17 11:48 65 14 96 Room Air 06/01/17 10:02 59 16 127/83 97 Room Air 06/01/17 09:04 96 Room Air 06/01/17 08:44 36.8 66 20 155/90 95 Room Air Physical Exam VITAL SIGNS - Vital signs and nursing notes were reviewed. Stable. GENERAL - 76-year-old female appearing her stated age who is in no acute distress. Communicates well with provider and answers questions appropriately. SKIN - Gross examination of the entire body surface demonstrates no lacerations to the body surface. Soft tissue contusion on the occiput noted. No step off. HEAD - Normocephalic, Atraumatic. No Velez's Sign or Raccoon's Eyes. No depressed skull fractures palpable. EYES - PERRL with EOMI bilaterally. Without subconjunctival hemorrhage. Palpebral conjunctiva pink and moist with no injection. EARS - No deformities of external structures noted on gross examination bilaterally. No hemotympanum present. No tympanic perforation noted. Handle of malleus, umbo, cone of light, pars tensa/flaccid all easily visualized. NOSE - Midline and without cyanosis. No epistaxis or clear watery discharge noted. Septum midline without deviation. No septal hematoma noted. No overlying ecchymosis noted. MOUTH/OROPHARYNX - Without perioral cyanosis. Tongue midline with equal elevation of palate bilaterally. No blood noted in the oropharynx. No tonsillar hypertrophy, erythema, or exudates noted. No dental fractures noted. NECK - No tenderness to palpation over the cervical spinous processes. No cervical paraspinal muscle tenderness noted. LUNGS - Chest wall symmetric without accessory muscle use, intercostals retractions, or central cyanosis. No flail chest or depressed fractures noted. No paradoxical chest wall movements noted. No tenderness to palpation across the anterior and posterior chest levy. No tenderness with deep inspiration noted against the examiner's applied pressure to the lateral chest levy. Normal vesicular breath sounds CTA B/L. No wheezes, rales, or rhonchi appreciated. CARDIAC - RRR with S1/S2. No murmur, rubs, or gallops appreciated. ABDOMEN - Abdominal contour normal and without pulsations or visible masses. BS normoactive all four quadrants. No rebound tenderness or guarding noted. No tenderness, palpable masses, hepatosplenomegaly, or ascites noted. EXTREMITIES - No gross deformities noted of the extremities. No tenderness to palpation of the extremities. +5/5 strength noted in UE/LE bilaterally. NEUROLOGIC - Cranial nerves II through XII grossly intact. Sensory intact to light touch throughout. PSYCH - A&O, and cooperates fully with examiner. Pt is very pleasant and interacts well with examiner. Medical Decision & Procedures ER Provider Diagnostic Interpretation: CT HEAD WITHOUT CONTRAST (CT) CLINICAL HISTORY: Head pain status post trauma COMPARISON STUDY: No previous studies for comparison. TECHNIQUE: Axial CT of the brain is performed from the vertex to the skull base. IV contrast was not administered for this examination. A dose lowering technique was utilized adhering to the principles of ALARA. CT DOSE: 1027.90 mGy.cm FINDINGS: No intra or extra-axial mass lesions are visualized. There is no CT evidence of acute cortical infarction. There is no evidence of midline shift. There is no acute hemorrhage. No calvarial fractures are visualized. There are patchy white matter hypodensities likely on a small vessel basis. There is no evidence of pathologic ventricular dilatation. There is no evidence of acute sinusitis. There is a posterior parieto-occipital scalp hematoma. IMPRESSION: Posterior scalp hematoma. No acute intracranial findings. Electronically signed by: Donn Stack M.D. 06/01/2017 9:34 AM Dictated Date/Time: 06/01/2017 9:[address] OF THE CERVICAL SPINE CLINICAL HISTORY: Neck pain status post trauma COMPARISON STUDY: No previous studies for comparison. CT DOSE: TECHNIQUE: CT scan of the cervical spine was performed from the skull base to the thoracic inlet. Images are reviewed in the axial, sagittal, and coronal planes. IV contrast was not administered for this examination. A dose lowering technique was utilized adhering to the principles of ALARA. FINDINGS: The visualized portions of the lung apices reveal no evidence of pneumothorax. The prevertebral soft tissues are normal. No fractures or subluxations are visualized. There are multilevel degenerative changes IMPRESSION: No evidence of acute fracture or traumatic subluxation. Electronically signed by: Donn Stack M.D. 06/01/2017 9:37 AM Dictated Date/Time: 06/01/2017 9:36 AM CHEST ONE VIEW PORTABLE HISTORY: 76 years-old Female Fall, struck head acute chest trauma status post fall COMPARISON: Chest radiograph 05/16/2017 TECHNIQUE: Portable AP view of the chest FINDINGS: Cardiac silhouette is mildly enlarged, unchanged. Atherosclerosis of the aorta. No pneumothorax, pleural effusion, focal airspace consolidation or overt pulmonary edema. Nodular opacities of the right lung apex are unchanged suggesting tiny calcified granulomas. Bones of the chest appear grossly intact. There are severe degenerative changes about the bilateral shoulders with ill-defined right shoulder periarticular calcifications. IMPRESSION: No acute process. The above report was generated using voice recognition software. It may contain grammatical, syntax or spelling errors. Electronically signed by: Giovanni Krause M.D. 06/01/2017 9:24 AM Dictated Date/Time: 06/01/2017 9:22 AM Laboratory Results 06/01/17 09:00 Red Blood Count 4.30, Mean Corpuscular Volume 94.7, Mean Corpuscular Hemoglobin 32.3, Mean Corpuscular Hemoglobin Concent 34.2, Mean Platelet Volume 10.5, Neutrophils (%) (Auto) 62.4, Lymphocytes (%) (Auto) 26.8, Monocytes (%) (Auto) 8.8, Eosinophils (%) (Auto) 1.4, Basophils (%) (Auto) 0.2, Neutrophils # (Auto) 3.50, Lymphocytes # (Auto) 1.50, Monocytes # (Auto) 0.49, Eosinophils # (Auto) 0.08, Basophils # (Auto) 0.01 06/01/17 09:00 Test 06/01/17 09:00 06/01/17 10:00 White Blood Count 5.60 K/uL (4.8-10.8) Red Blood Count 4.30 M/uL (4.2-5.4) Hemoglobin 13.9 g/dL (12.0-16.0) Hematocrit 40.7 % (37-47) Mean Corpuscular Volume 94.7 fL (80-100) Mean Corpuscular Hemoglobin 32.3 pg (25-34) Mean Corpuscular Hemoglobin Concent 34.2 g/dl (32-36) Platelet Count 174 K/uL (130-400) Mean Platelet Volume 10.5 fL (7.4-10.4) Neutrophils (%) (Auto) 62.4 % Lymphocytes (%) (Auto) 26.8 % Monocytes (%) (Auto) 8.8 % Eosinophils (%) (Auto) 1.4 % Basophils (%) (Auto) 0.2 % Neutrophils # (Auto) 3.50 K/uL (1.4-6.5) Lymphocytes # (Auto) 1.50 K/uL (1.2-3.4) Monocytes # (Auto) 0.49 K/uL (0.11-0.59) Eosinophils # (Auto) 0.08 K/uL (0-0.5) Basophils # (Auto) 0.01 K/uL (0-0.2) RDW Standard Deviation 44.0 fL (36.4-46.3) RDW Coefficient of Variation 12.8 % (11.5-14.5) Immature Granulocyte % (Auto) 0.4 % Immature Granulocyte # (Auto) 0.02 K/uL (0.00-0.02) Prothrombin Time 10.6 SECONDS (9.0-12.0) Prothromb Time International Ratio 1.0 (0.9-1.1) Activated Partial Thromboplast Time 23.8 SECONDS (21.0-31.0) Partial Thromboplastin Ratio 0.9 Anion Gap 4.0 mmol/L (3-11) Est Creatinine Clear Calc Drug Dose 62.7 ml/min Estimated GFR () 77.7 Estimated GFR (Non- 67.0 BUN/Creatinine Ratio 14.6 (10-20) Calcium Level 8.8 mg/dl (8.5-10.1) Magnesium Level 1.6 mg/dl (1.8-2.4) Total Bilirubin 0.5 mg/dl (0.2-1) Aspartate Amino Transf (AST/SGOT) 15 U/L (15-37) Alanine Aminotransferase (ALT/SGPT) 21 U/L (12-78) Alkaline Phosphatase 46 U/L (45-117) Total Creatine Kinase 48 U/L (26-192) Creatine Kinase MB 0.9 ng/ml (0.5-3.6) Creatine Kinase MB Ratio 1.9 (0-3.0) Troponin I < 0.015 ng/ml (0-0.045) Total Protein 6.7 gm/dl (6.4-8.2) Albumin 3.6 gm/dl (3.4-5.0) Globulin 3.1 gm/dl (2.5-4.0) Albumin/Globulin Ratio 1.2 (0.9-2) Urine Color YELLOW Urine Appearance CLEAR (CLEAR) Urine pH 5.0 (4.5-7.5) Urine Specific [place] 1.022 (1.000-1.030) Urine Protein NEG (NEG) Urine Glucose (UA) NEG (NEG) Urine Ketones NEG (NEG) Urine Occult Blood TRACE (NEG) Urine Nitrite NEG (NEG) Urine Bilirubin NEG (NEG) Urine Urobilinogen NEG (NEG) Urine Leukocyte Esterase TRACE (NEG) Urine WBC (Auto) 1-5 /hpf (0-5) Urine RBC (Auto) 5-10 /hpf (0-4) Urine Hyaline Casts (Auto) 1-5 /lpf (0-5) Urine Epithelial Cells (Auto) >30 /lpf (0-5) Urine Bacteria (Auto) NEG (NEG) Urine Renal Epithelial Cells 10-20 /lpf (0-5) Medications Administered Medications (Trade) Dose Ordered Sig/Francisco Route Start Time Stop Time Status Last Admin Dose Admin Acetaminophen (Tylenol Tab) 500 mg NOW STAT PO 06/01/17 08:52 06/01/17 08:55 DC 06/01/17 09:03 500 MG Magnesium Sulfate (Magnesium Sulfate) 2 gm NOW STAT IV 06/01/17 10:06 06/01/17 10:07 DC 06/01/17 10:22 2 GM Medical Decision Patient was seen and evaluated as above. She comes to was status post mechanical fall. I personally spoke with her personal retirement as the history is somewhat limited secondary to her chronic underlying Alzheimer's. The indicated that she was ambulating and fell. She struck her head. She has been at baseline. After obtaining a thorough history and physical examination the above work up was performed. CT of the head and neck reveal no acute process. X-rays negative. CBC reveals no leukocytosis or anemia. Coags normal. Metabolic panel reveals no concerning kidney or liver abnormality. Mag low 1.6. She was given 2 g of magnesium IV. Urine cath reveals that I believe to be a contaminated sample. She appears stable for outpatient management. The patient was educated upon management, had questions answered prior to discharge , and was discharged home in good condition. Case was discussed with the attending physician Bedside EKG per my interpretation reveals normal sinus rhythm, rate of 61 bpm. No ectopy or ischemic change. I attest that I have personally reviewed the patient medication list. The patient's blood pressure was reviewed and was found to be elevated. In the evaluation and treatment of this patient, the following differential diagnoses were considered: Concussion, Contrecoup Injury, Brain Tumor, Depression, Encephalitis, Hypothyroidism, Meningitis, CVA, TIA, Migraine, Cluster Headache, Intracranial Abnormality, Intracranial Hemorrhage, Subdural Hematoma, Subarachnoid Hemorrhage, Hydrocephalus. Impression Primary Impression: Fall Additional Impression: Closed head injury Departure Information Dispostion Home / Self-Care Condition GOOD Referrals Caleb Ridley III, M.D. (PCP) Patient Instructions My [facility] Additional Instructions You have been treated in the Emergency Department for a Closed Head Injury. CT Scan of your head/brain demonstrated no acute bleeding or other emergent abnormalities. This does not completely rule out the risk for future damage to the brain. For pain control, you can use the following [id number] medicines: - Regular strength (325mg/tab) Tylenol (acetaminophen) 2 tabs every 4-6 hours as needed. Do not exceed 12 tablets in a 24 hour period. Avoid taking more than 3 grams (3000 mg) of Tylenol per day. This includes any other sources of acetaminophen you may take on a regular basis. You should relax in a quiet, dark place for the rest of the day. You should schedule a follow-up appointment in 2-3 days with your Primary Care Provider for further evaluation and treatment of your fall. Return to the Emergency Department if your current symptoms worsen despite treatment course outlined above, or if you develop any of the following symptoms : intractable pain despite aforementioned treatment course, visual disturbances , loss of vision, unilateral weakness or facial drooping, slurring of speech, loss of coordination, or loss of consciousness. Problem Qualifiers
--- NOTE | 2017-06-01 09:25 | DIAGNOSTIC IMAGING REPORT ---
CHEST ONE VIEW PORTABLE HISTORY: 76 years-old Female Fall, struck head acute chest trauma status post fall COMPARISON: Chest radiograph 05/16/2017 TECHNIQUE: Portable AP view of the chest FINDINGS: Cardiac silhouette is mildly enlarged, unchanged. Atherosclerosis of the aorta. No pneumothorax, pleural effusion, focal airspace consolidation or overt pulmonary edema. Nodular opacities of the right lung apex are unchanged suggesting tiny calcified granulomas. Bones of the chest appear grossly intact. There are severe degenerative changes about the bilateral shoulders with ill-defined right shoulder periarticular calcifications. IMPRESSION: No acute process. The above report was generated using voice recognition software. It may contain grammatical, syntax or spelling errors. Electronically signed by: Giovanni Krause M.D. 06/01/2017 9:24 AM Dictated Date/Time: 06/01/2017 9:22 AM
[2017-06-01 09:33] LABS: BASO % 0.2 %; BASO ABS # 0.01 K/uL (0-0.2); EOS % 1.4 %; EOS ABS # 0.08 K/uL (0-0.5); HEMATOCRIT 40.7 % (37-47); HEMOGLOBIN 13.9 g/dL (12.0-16.0); IG# 0.02 K/uL (0.00-0.02); LYMPH % 26.8 %; MEAN CELL VOLUME 94.7 fL (80-100); MEAN CORPUSCULAR HEMOGLOBIN 32.3 pg (25-34); MEAN CORPUSCULAR HGB CONC 34.2 g/dl (32-36); MEAN PLATELET VOLUME 10.5 fL (7.4-10.4); MONO % 8.8 %; MONO ABS # 0.49 K/uL (0.11-0.59); NEUT % 62.4 %; PLATELET COUNT 174 K/uL (130-400); RED CELL DISTRIBUTION WIDTH CV 12.8 % (11.5-14.5)
--- NOTE | 2017-06-01 09:36 | DIAGNOSTIC IMAGING REPORT ---
CT HEAD WITHOUT CONTRAST (CT) CLINICAL HISTORY: Head pain status post trauma COMPARISON STUDY: No previous studies for comparison. TECHNIQUE: Axial CT of the brain is performed from the vertex to the skull base. IV contrast was not administered for this examination. A dose lowering technique was utilized adhering to the principles of ALARA. CT DOSE: 1027.90 mGy.cm FINDINGS: No intra or extra-axial mass lesions are visualized. There is no CT evidence of acute cortical infarction. There is no evidence of midline shift. There is no acute hemorrhage. No calvarial fractures are visualized. There are patchy white matter hypodensities likely on a small vessel basis. There is no evidence of pathologic ventricular dilatation. There is no evidence of acute sinusitis. There is a posterior parieto-occipital scalp hematoma. IMPRESSION: Posterior scalp hematoma. No acute intracranial findings. Electronically signed by: Donn Stack M.D. 06/01/2017 9:34 AM Dictated Date/Time: 06/01/2017 9:33 AM
--- NOTE | 2017-06-01 09:39 | DIAGNOSTIC IMAGING REPORT ---
CT OF THE CERVICAL SPINE CLINICAL HISTORY: Neck pain status post trauma COMPARISON STUDY: No previous studies for comparison. CT DOSE: TECHNIQUE: CT scan of the cervical spine was performed from the skull base to the thoracic inlet. Images are reviewed in the axial, sagittal, and coronal planes. IV contrast was not administered for this examination. A dose lowering technique was utilized adhering to the principles of ALARA. FINDINGS: The visualized portions of the lung apices reveal no evidence of pneumothorax. The prevertebral soft tissues are normal. No fractures or subluxations are visualized. There are multilevel degenerative changes IMPRESSION: No evidence of acute fracture or traumatic subluxation. Electronically signed by: Donn Stack M.D. 06/01/2017 9:37 AM Dictated Date/Time: 06/01/2017 9:36 AM
[2017-06-01 09:45] LABS: PTT PATIENT 23.8 SECONDS (21.0-31.0)
[2017-06-01] MEDS ORDERED: INSDGIPEN SC (09:49)
[2017-06-01 09:53] LABS: ALBUMIN 3.6 gm/dl (3.4-5.0); ALT/SGPT 21 U/L (12-78); AST/SGOT 15 U/L (15-37); BLOOD UREA NITROGEN 12 mg/dl (7-18); CALCIUM 8.8 mg/dl (8.5-10.1); CARBON DIOXIDE 28 mmol/L (21-32); CREATININE 0.85 mg/dl (0.60-1.20); GLUCOSE 121 mg/dl (70-99); POTASSIUM 4.3 mmol/L (3.5-5.1); SODIUM 138 mmol/L (136-145)
[2017-06-01 09:58] LABS: ALKALINE PHOSPHATASE 46 U/L (45-117); CKMB 0.9 ng/ml (0.5-3.6); TOTAL PROTEIN 6.7 gm/dl (6.4-8.2)
[2017-06-01] MEDS ORDERED: MAGNESIUM SULFATE 1GM / D5W 1 GM BAG IV STA (10:06)
--- NOTE | 2017-06-01 11:11 | EMERGENCY ROOM VISIT NOTE ---
ED Visit Note First contact with patient: 08:46 Patient was seen by our PA/TRUCK MECHANIC. I was involved in the patient's care and did evaluate the patient myself. I was involved in the care throughout the ER stay. The patient presents after a fall. No serious traumatic injuries noted by workup. The patient's magnesium was slightly low, this was replaced IV. The patient can be discharged home.
[2017-06-01 12:32] VITALS: BP 139/68; PULSE 71; O2SAT 96
== END 2017-06-01 12:34 | disposition home or self-care (01) ==
LOC: C.EDB 08:44 → EDBD 08:44 → C.EDB 12:34
DX: S09.90XA Unspecified injury of head, initial encounter (principal); W19.XXXA Unspecified fall, initial encounter; Y92.031 Bathroom in apartment as the place of occurrence of the external cause; G30.9 Alzheimer's disease, unspecified; E11.9 Type 2 diabetes mellitus without complications; Z96.641 Presence of right artificial hip joint; Z79.82 Long term (current) use of aspirin; Z79.4 Long term (current) use of insulin; Z79.899 Other long term (current) drug therapy

== ENCOUNTER → 2017-06-17 | Outpatient (CLI) | payer OTHER ==
[~2017-06-17] MED LIST changes: -INSDGI SC; +INSDGIPEN SC; -INSU100I23 SC
[2017-06-17 09:08] LABS: BASO % 0.2 %; BASO ABS # 0.01 K/uL (0-0.2); EOS % 1.6 %; EOS ABS # 0.08 K/uL (0-0.5); HEMATOCRIT 37.8 % (37-47); IG# 0.02 K/uL (0.00-0.02); LYMPH % 34.1 %; MEAN CELL VOLUME 93.6 fL (80-100); MEAN CORPUSCULAR HEMOGLOBIN 32.2 pg (25-34); MEAN CORPUSCULAR HGB CONC 34.4 g/dl (32-36); MEAN PLATELET VOLUME 10.4 fL (7.4-10.4); MONO ABS # 0.45 K/uL (0.11-0.59); NEUT % 54.7 %; NEUT ABS # 2.72 K/uL (1.4-6.5); PLATELET COUNT 194 K/uL (130-400); RED CELL DISTRIBUTION WIDTH CV 12.7 % (11.5-14.5); RED CELL DISTRIBUTION WIDTH SD 43.1 fL (36.4-46.3); WHITE BLOOD COUNT 4.98 K/uL (4.8-10.8)
[2017-06-17 09:18] LABS: BLOOD UREA NITROGEN 13 mg/dl (7-18); CALCIUM 8.8 mg/dl (8.5-10.1); CARBON DIOXIDE 27 mmol/L (21-32); CREATININE 0.71 mg/dl (0.60-1.20); GLUCOSE 102 mg/dl (70-99); POTASSIUM 4.2 mmol/L (3.5-5.1); SODIUM 141 mmol/L (136-145)
[2017-06-17 10:34] LABS: HEMOGLOBIN A1C 9.1 % (4.5-5.6)
== END | disposition home or self-care (01) ==
LOC: C.LABOUTLO 08:39
PROVIDERS: ATTEND Internal Medicine
DX: I48.91 Unspecified atrial fibrillation (principal); I10 Essential (primary) hypertension; E11.9 Type 2 diabetes mellitus without complications; E03.9 Hypothyroidism, unspecified